=== PATIENT | female | born 1945 | race Caucasian/White ===

== ENCOUNTER 2016-09-15 15:26 | Emergency (ER) | payer BC, OTHER ==
[2016-09-15 15:34] VITALS: TEMP 99.7; BMI 22.5
[2016-09-15] MEDS ORDERED: IBUPROFEN 600 MG TABLET (FP) PO ONE ×2 (16:17→17:14)
[2016-09-15 17:17] LABS: BASOPHIL 0.5 % (0-2.0); EOSINOPHIL 0.7 % (0-4.5); MCH 30.4 pg (25.7-33.7); MCHC 33.8 g/dl (32.0-36.0); MEAN CELL VOLUME 89.8 fl (80-96); NEUTROPHILS 66.3 % (42.8-82.8); PLATELET COUNT 338 K/MM3 (134-434); RDW 13.7 % (11.6-15.6); WHITE BLOOD COUNT 10.6 K/mm3 (4.0-10.0)
--- NOTE | 2016-09-15 17:45 | PDOC ---
[id number] No Limitations - History of Present Illness Initial Comments: 09/15/16 19:05 Chief complaint: Wrist pain, chest and shortness of breath Patient is a 71-year-old female with a history of psoriasis, sinusitis, DCIS and pneumonia who 9 days ago had large tonsils, and Sunday started getting pain to the side of the chest, some shortness of breath, Sunday couldn't sustain a full sentence. And her right wrist started hurting and is swollen. Patient is not on any kind of steroids or immunosuppressants. No fever but patient has had some chills. Her feels better now. Patient is also been feeling congested GENERAL/CONSTITUTIONAL: No fever, weakness. dizziness, + chills HEAD, EYES, EARS, NOSE AND THROAT: No change in vision. No ear pain or discharge. No sore throat. CARDIOVASCULAR: No chest pain RESPIRATORY: +shortness of breath, minimal cough GASTROINTESTINAL: No pain, nausea, vomiting, diarrhea or constipation GENITOURINARY: No dysuria MUSCULOSKELETAL: No neck or back pain SKIN: No rash NEUROLOGIC: No headache, vertigo, loss of consciousness, or loss of sensation. GENERAL: The patient is awake, alert, and fully oriented, in no acute distress. HEAD: Normal with no signs of trauma. EYES: Pupils equal, round and reactive to light, sclera anicteric, conjunctiva clear. ENT: pharynx: no erythema, no exudate, uvula midline NECK: supple CHEST: clear, + left mid anterior tenderness, rr ABD: soft, nontender EXTREMITIES: The wrist with mild swelling and tenderness, otherwise Normal range of motion, no edema. NEUROLOGICAL: Normal speech, normal gait. SKIN: Warm, Dry <Cheyenne Thapa - Last Filed: 09/15/16 22:09> <Royal Peterson - Last Filed: 09/20/16 10:00> - General Chief Complaint: Pain Stated Complaint: (PCP SENT) RT WRIST PAIN Time Seen by Provider: 09/15/16 15:59 Past History - Past Medical History Other medical history: denies - Immunization History Immunization Up to Date: No (? pna) - Psycho/Social/Smoking Cessation Hx Anxiety: No Suicidal Ideation: No Smoking History: Never smoked Information on smoking cessation initiated: No Hx Alcohol Use: No Drug/Substance Use Hx: No Substance Use Type: None <Cheyenne Thapa - Last Filed: 09/15/16 22:09> <Royal Peterson - Last Filed: 09/20/16 10:00> - Past Medical History Allergies/Adverse Reactions: Allergies Allergy/AdvReac Type Severity Reaction Status Date / Time No Known Allergies Allergy Verified 09/15/16 15:27 Home Medications: Ambulatory Orders Albuterol Sulfate Inhaler - [Ventolin HFA Inhaler -] 2 inh PO Q6H #1 inh *Physical Exam - Vital Signs Last Vital Signs Temp Pulse Resp BP Pulse Ox 99.7 F H 76 20 156/99 95 09/15/16 15:28 09/15/16 15:28 09/15/16 15:28 09/15/16 15:28 09/15/16 15:28 <Cheyenne Thapa - Last Filed: 09/15/16 22:09> - Vital Signs Last Vital Signs Temp Pulse Resp BP Pulse Ox 99.7 F H 70 18 149/86 98 09/15/16 15:28 09/15/16 18:50 09/15/16 18:50 09/15/16 18:50 09/15/16 18:50 <Royal Peterosn - Last Filed: 09/20/16 10:00> Procedures - Splinting Splint Location: Right: Wrist Pre-Proc Neuro Vasc Exam: normal Pre-Made Type: velcro Splint Type: Yes: Wrist Post-Proc Neuro Vasc Exam: normal Edgar Bandage: no Sling: No <Cheyenne Thapa - Last Filed: 09/15/16 22:09> Heart Score/ECG Review - ECG Intrepretation Comment:: 09/15/16 19:17 Normal sinus rhythm at 73, junctional ST depression, probably normal <Cheyenne Thapa - Last Filed: 09/15/16 22:09> ED Treatment Course - LABORATORY CBC & Chemistry Diagram: 09/15/16 17:03 09/15/16 17:03 - ADDITIONAL ORDERS Additional order review: 09/15/16 17:03 RBC 4.49 MCV 89.8 MCHC 33.8 RDW 13.7 MPV 8.0 Neutrophils % 66.3 Lymphocytes % 23.4 Monocytes % 9.1 Eosinophils % 0.7 Basophils % 0.5 - RADIOLOGY Radiology Studies Ordered: Category Date Time Status CHEST PA & LAT [RAD] Stat Radiology 09/15/16 16:17 Completed WRIST- RIGHT [RAD] Stat Radiology 09/15/16 16:41 Completed - Medications Given in the ED: ED Medications Discontinued Medications Generic Name Dose Route Start Last Admin Trade Name Freq PRN Reason Stop Dose Admin Ibuprofen 600 mg 09/15/16 16:17 09/15/16 17:16 Motrin - PO 09/15/16 16:18 600 mg ONCE ONE Administration <Cheyenne Thapa - Last Filed: 09/15/16 22:09> - LABORATORY CBC & Chemistry Diagram: 09/15/16 17:03 09/15/16 17:03 - ADDITIONAL ORDERS Additional order review: 09/15/16 17:03 RBC 4.49 MCV 89.8 MCHC 33.8 RDW 13.7 MPV 8.0 Neutrophils % 66.3 Lymphocytes % 23.4 Monocytes % 9.1 Eosinophils % 0.7 Basophils % 0.5 - Medications Given in the ED: ED Medications Discontinued Medications Generic Name Dose Route Start Last Admin Trade Name Freq PRN Reason Stop Dose Admin Sodium Chloride 1,000 mls @ 1,000 mls/hr 09/15/16 20:16 09/15/16 20:29 Normal Saline - IV 09/15/16 21:15 1,000 mls/hr ASDIR STA Administration Ibuprofen 600 mg 09/15/16 16:17 09/15/16 17:16 Motrin - PO 09/15/16 16:18 600 mg ONCE ONE Administration <Royal Peterson - Last Filed: 09/20/16 10:00> Medical Decision Making - Medical Decision Making 09/15/16 19:17 pt with right wrist pain and swelling, congestion, shortness of breath and left- sided pleuritic chest pain. Patient will get labs, oxygen is low, and cardiac's and d-dimer given patient's age and riding symptoms. 09/15/16 22:09 CTA negative, no acute findings, no pneumonia or PE Patient states she can take albuterol, patient's oxygen is better than when she first came in, she states the Motrin helped her wrist and also the pain in her chest. She will follow-up with the orthopedist regarding her risks, her is a radiologist and he was shown the x-rays and he reviewed the CAT scan. So he knows what needs to be done. <Cheyenne Thapa - Last Filed: 09/15/16 22:09> - Medical Decision Making 09/20/16 10:00 The patient was seen and evaluated in conjunction with SPENSER Thapa under my direct supervision, ancillary studies were reviewed. I independently interviewed and evaluated the patient and I agree with the plan as outlined by SPENSER Thapa . <Royal Peterson - Last Filed: 09/20/16 10:00> *DC/Admit/Observation/Transfer - Discharge Dispostion Admit: No <Cheyenne Thapa - Last Filed: 09/15/16 22:09> <Royal Peterson - Last Filed: 09/20/16 10:00> Diagnosis at time of Disposition: Upper respiratory infection Qualifiers: URI type: unspecified viral URI Qualified Code(s): J06.9 - Acute upper respiratory infection, unspecified - Discharge Dispostion Disposition: HOME - Prescriptions Prescriptions: Albuterol Sulfate Inhaler - [Ventolin HFA Inhaler -] 2 inh PO Q6H #1 inh - Referrals Referrals: Katherine Zapata MD [Primary Care Provider] - - Patient Instructions Printed Discharge Instructions: DI for Viral Upper Respiratory Infection -- Adult Additional Instructions: Drink 2-3 L of water daily Use the Nasonex and the albuterol needed Take Tylenol 650 mg every 4 hours or Motrin 600 mg every 6 hours for fever and pain Return to the nearest ER if short of breath, unable to swallow or feels worse Follow-up with the orthopedist regarding your wrist and with your doctor regarding your breathing
[2016-09-15 18:11] LABS: ALBUMIN 3.6 g/dl (3.4-5.0); ANION GAP 11 (8-16); CALCIUM 9.4 mg/dL (8.5-10.1); CO2 28 mmol/L (21-32); GLUCOSE,RANDOM 99 mg/dL (74-106)
[2016-09-15 18:12] LABS: TROPONIN I < 0.02 ng/ml (0.00-0.05)
[2016-09-15 18:16] LABS: ALK PHOS 69 U/L (45-117); BILIRUBIN,TOTAL 0.3 mg/dL (0.2-1.0); CREATININE 0.5 mg/dL (0.55-1.02); SGOT/AST 9 U/L (15-37); SGPT/ALT 13 U/L (12-78); TOT PROT 7.7 g/dl (6.4-8.2)
[2016-09-15 18:51] VITALS: BP 149/86; PULSE 70
[2016-09-15] MEDS ORDERED: SODIUM CHLORIDE 1,000 ML IV STA (20:16)
--- NOTE | 2016-09-16 13:39 | EKG ---
Test Reason : Blood Pressure : / mmHG Vent. Rate : 073 BPM Atrial Rate : 073 BPM P-R Int : 148 ms QRS Dur : 076 ms QT Int : 390 ms P-R-T Axes : 065 034 -02 degrees QTc Int : 429 ms NORMAL SINUS RHYTHM POSSIBLE LEFT ATRIAL ENLARGEMENT BASELINE ARTIFACT NO PREVIOUS ECGS AVAILABLE Confirmed by MANAV NORIEGA, FABIAN ([id number]) on 09/16/2016 1:39:22 PM Referred By: Confirmed By:FABIAN EM MD
== END 2016-09-15 22:11 | disposition home or self-care (01) ==
LOC: JER 15:26
PROC: 3E0337Z Introduction of Electrolytic and Water Balance Substance into Peripheral Vein, Percutaneous Approach (ICD-10-PCS; principal; 2016-09-15)
DX: J06.9 Acute upper respiratory infection, unspecified (principal)
CPT/HCPCS: 36415; 71020-TC; 71275-TC; 73110-TC-RT; 80053; 82550; 84484; 85025; 85379; 93005; 93010; 96360; 99284-25